=== PATIENT | male | born 1990 | race Two or more races ===

== ENCOUNTER 2021-01-19 09:59 | Outpatient (CLI) | payer OTHER | END 2021-01-19 12:29 | disposition home or self-care (01) | LOC: LAB 09:59 | DX: Z20.818 Contact with and (suspected) exposure to other bacterial communicable diseases (principal); Z20.828 Contact with and (suspected) exposure to other viral communicable diseases ==

== ENCOUNTER 2021-01-23 14:54 | Outpatient (CLI) | payer OTHER | END 2021-01-23 15:11 | disposition home or self-care (01) | LOC: LAB 14:54 | PROVIDERS: ATTEND Pediatrics Neonatal-Perinatal Medicine | DX: Z20.822 Contact with and (suspected) exposure to COVID-19 (principal) ==